=== PATIENT | female | born 1950 | race Caucasian/White ===

== ENCOUNTER 2017-07-31 10:40 | Emergency (ER) | payer MEDICARE, OTHER ==
[~2017-07-31] VITALS: Ht 162.6 cm; Wt 70.0 kg
[2017-07-31 10:53] VITALS: BP 160/62
[2017-07-31] MEDS ORDERED: benoxinate/fluorescein ophth drops 5ml bottle LEFTEYE ONE (11:25)
[2017-07-31] MEDS ORDERED: FLUORESCEIN TP ONE (11:45)
[2017-07-31] MEDS ORDERED: PROPARACAINE TP ONE (11:45)
[2017-07-31] MEDS ORDERED: TOBR5DRO2 RIGHTEYE (12:18)
== END 2017-07-31 12:28 | disposition home or self-care (01) ==
LOC: ER 10:42
DX: S05.02XA Injury of conjunctiva and corneal abrasion without foreign body, left eye, initial encounter (principal); Z88.2 Allergy status to sulfonamides; Z88.5 Allergy status to narcotic agent; W22.8XXA Striking against or struck by other objects, initial encounter; Y93.89 Activity, other specified; Y92.89 Other specified places as the place of occurrence of the external cause; Y99.8 Other external cause status
CPT/HCPCS: 99283